=== PATIENT | male | born 1975 | race Caucasian/White ===

== ENCOUNTER → 2016-05-26 | Outpatient (CLI) | payer SELFPAY | LOC: RAD 06:58 | PROVIDERS: ATTEND Chiropractor | DX: M54.2 Cervicalgia (principal) | CPT/HCPCS: 72050 ==

== ENCOUNTER 2017-12-06 17:03 | Emergency (ER) | payer SELFPAY ==
--- NOTE | 2017-12-06 17:55 | RADIOLOGY REPORT (SQ) ---
EXAM DESCRIPTION: FOOT RIGHT COMPLETE COMPLETED DATE/TIME: 12/06/2017 5:43 pm REASON FOR STUDY: Pain s/p twisting foot COMPARISON: None. NUMBER OF VIEWS: Three views. TECHNIQUE: AP, lateral and oblique radiographic images acquired of the right foot. LIMITATIONS: None. FINDINGS: MINERALIZATION: Normal. BONES: No acute fracture or dislocation. No worrisome bone lesions. JOINTS: No effusions. SOFT TISSUES: No soft tissue swelling. No foreign body. OTHER: Minimal plantar spurring is identified. IMPRESSION: NO RADIOGRAPHIC EVIDENCE OF ACUTE INJURY. TECHNICAL DOCUMENTATION: JOB ID: [id number] [employer]- All Rights Reserved Reading location - IP/workstation name: [email or web address]
--- NOTE | 2017-12-06 18:20 | ER Document Report ---
HPI - HPI Patient complains to provider of: twisted right foot Onset: Other - today Onset/Duration: Sudden Quality of pain: Throbbing Pain Level: 4 Context: 42 yo male with right proximal dorsal fot pain after twisting it today. No ankle pain. Associated Symptoms: None Exacerbated by: Walking Relieved by: Denies Similar symptoms previously: No Recently seen / treated by doctor: No - ROS ROS below otherwise negative: Yes Systems Reviewed and Negative: Yes All other systems reviewed and negative - REPRODUCTIVE Reproductive: DENIES: : Past Medical History - General Information source: Patient - Social History Smoking Status: Unknown if Ever Smoked Frequency of alcohol use: None Drug Abuse: None Lives with: Spouse/Significant other Family History: None - Medical History Medical History: Negative Surgical Hx: Negative - Immunizations Hx Diphtheria, Pertussis, Tetanus Vaccination: Yes Vertical Provider Document - CONSTITUTIONAL Agree With Documented VS: Yes Exam Limitations: No Limitations General Appearance: No Apparent Distress - INFECTION CONTROL TRAVEL OUTSIDE OF THE [place] IN LAST 30 DAYS: No - MUSCULOSKELETAL/EXTREMETIES Musculoskeletal/Extremeties: Edema - tender proximal dorsal right foot, 2+ dp, non tender malleoli - NEURO Level of Consciousness: Alert Motor/Sensory: No Motor Deficit, No Sensory Deficit - DERM Integumentary: No Rash Course - Re-evaluation Re-evalutation: 12/06/17 18:22 X-rays negative per rad he is tender only on the foot not the malleoli 12/06/17 19:50 Both x-rays are negative, will splint and send to ortho - Vital Signs Vital signs: Temp Pulse Resp BP Pulse Ox 98.1 F 82 16 127/93 H 98 12/06/17 17:46 12/06/17 17:46 12/06/17 17:46 12/06/17 17:46 12/06/17 17:46 Procedures - Immobilization Right Foot Time completed: 20:19 Pre-Proc Neuro Vasc Exam: Normal Immobilizer type: Crutches, Posterior ankle Performed by: PCT Post-Proc Neuro Vasc Exam: Normal Alignment checked and good: Yes Discharge - Discharge Clinical Impression: Right foot sprain Condition: Good Disposition: HOME, SELF-CARE Instructions: Acetaminophen, Use of Crutches ([facility]), Ibuprofen (General) ([facility]), Sprain ([facility]) Additional Instructions: Splint for comfort this week Crutches Referral to orthopedics both the foot and ankle x-ray are negative Ibuprofen 3 times a day for inflammation Tylenol up to 4000 mg per day for pain Prescriptions: Ibuprofen [Motrin 800 mg Tablet] 800 mg PO Q8HP PRN #30 tablet PRN Reason: Forms: Return to Work Referrals: VANESA LÓPEZ MD [ACTIVE STAFF] - Follow up as needed
[2017-12-06] MEDS ORDERED: IBUPROFEN 600 MG TABLET PO ONE (18:23)
[2017-12-06] MEDS ORDERED: ACETAMINOPHEN 325 MG TABLET PO ONE (18:23)
[2017-12-06] MEDS ORDERED: OXYCODONE HCL IR 5 MG TABLET PO ONE (19:19)
--- NOTE | 2017-12-06 19:43 | RADIOLOGY REPORT (SQ) ---
EXAM DESCRIPTION: ANKLE RIGHT COMPLETE COMPLETED DATE/TIME: 12/06/2017 7:27 pm REASON FOR STUDY: pain anterior ankle, only foot xray done COMPARISON: None. NUMBER OF VIEWS: Three views. TECHNIQUE: AP, lateral, and oblique radiographic images acquired of the right ankle. LIMITATIONS: None. FINDINGS: MINERALIZATION: Normal. BONES: No acute fracture or dislocation. No worrisome bone lesions. JOINTS: No effusions. SOFT TISSUES: No soft tissue swelling. No foreign body. OTHER: No other significant finding. IMPRESSION: NEGATIVE STUDY OF THE RIGHT ANKLE. NO RADIOGRAPHIC EVIDENCE OF ACUTE INJURY. TECHNICAL DOCUMENTATION: JOB ID: [id number] [employer]- All Rights Reserved Reading location - IP/workstation name: [email or web address]
[2017-12-06 20:26] VITALS: BP 134/92
== END 2017-12-06 20:26 | disposition home or self-care (01) ==
LOC: ER 17:03
PROC: 2W3QX1Z Immobilization of Right Lower Leg using Splint (ICD-10-PCS; principal; 2017-12-06)
DX: S93.601A Unspecified sprain of right foot, initial encounter (principal); X50.0XXA Overexertion from strenuous movement or load, initial encounter
CPT/HCPCS: 99283

== ENCOUNTER 2019-01-10 13:50 | Emergency (ER) | payer SELFPAY ==
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
[2019-01-10] MEDS ORDERED: OXYCODONE-ACETAMINOPHEN 5-325 MG TABLET PO ONE ×2 (16:46→16:47)
--- NOTE | 2019-01-10 18:32 | RADIOLOGY REPORT (SQ) ---
EXAM DESCRIPTION: MRI LUMBAR SPINE WITHOUT COMPLETED DATE/TIME: 01/10/2019 6:17 pm REASON FOR STUDY: low back pain, injury, COMPARISON: None. TECHNIQUE: Sagittal and Axial imaging includes T1, T2, STIR and gradient echo sequences. Coronal T2/ HASTE imaging. LIMITATIONS: There is motion artifact. FINDINGS: VISUALIZED UPPER ABDOMEN: Limited evaluation. No acute or suspicious findings suggested. SEGMENTATION: No transitional anatomy. The lowest well-developed disc space is labeled L5-S1. ALIGNMENT: Anatomic. VERTEBRAE: Intact. BONE MARROW: Normal. No marrow replacement or reactive changes. DISC SIGNAL: There is mild disc narrowing at several levels with decreased signal intensity at L3-4 a nd L4-5. POSTERIOR ELEMENTS: Generally intact. No pars defect evident. HARDWARE: None in the spine. CORD AND CONUS: Normal in size and signal intensity. Conus at the L1 level. SOFT TISSUES: No aortic aneurysm seen. No bulky retroperitoneal adenopathy or mass. No paraspinal mas s or fluid. L1-L2: Mild concentric disc bulge at L1-2 with no significant central canal or foraminal stenosis. L2-L3: No significant spinal stenosis or exit foraminal stenosis. L3-L4: No significant spinal stenosis or exit foraminal stenosis. L4-L5: No significant spinal stenosis or exit foraminal stenosis. L5-S1: No significant spinal stenosis or exit foraminal stenosis. LOWER THORACIC: Incompletely imaged. No stenosis seen. SACRUM: Visualized upper sacrum intact. OTHER: No other significant findings. IMPRESSION: Mild concentric disc bulging at L1-2 with no significant central canal or foraminal sten osis. No other significant findings. Study is limited by motion artifact. TECHNICAL DOCUMENTATION: JOB ID: [id number] [employer]- All Rights Reserved Reading location - IP/workstation name: [email or web address]
[2019-01-10 18:54] LABS: APPEARANCE,URINE CLEAR; BILIRUBIN,URINE NEGATIVE (NEGATIVE); COLOR,URINE YELLOW; GLUCOSE, URINE NEGATIVE (NEGATIVE); KETONES,URINE NEGATIVE (NEGATIVE); LEUKOCYTE ESTERASE,URINE NEGATIVE (NEGATIVE); NITRITE,URINE NEGATIVE (NEGATIVE); PROTEIN,URINE NEGATIVE (NEGATIVE); URINE SPECIFIC GRAVITY 1.016; UROBILINOGEN,URINE NEGATIVE mg/dL (<2.0)
[2019-01-10 19:21] VITALS: BP 127/91
== END 2019-01-10 19:24 | disposition home or self-care (01) ==
LOC: ER 13:50
DX: M51.86 Other intervertebral disc disorders, lumbar region (principal); M54.5 Low back pain; X50.0XXA Overexertion from strenuous movement or load, initial encounter; Y99.8 Other external cause status
CPT/HCPCS: 72148; 81001; 99284

== ENCOUNTER → 2019-02-21 | Outpatient (CLI) | payer SELFPAY ==
--- NOTE | 2019-02-21 14:34 | RADIOLOGY REPORT (SQ) ---
EXAM DESCRIPTION: CERV SP 4 OR 5 VIEWS COMPLETED DATE/TIME: 02/21/2019 1:54 pm REASON FOR STUDY: (M54.2)CERVICALGIA M54.2 CERVICALGIA COMPARISON: None. NUMBER OF VIEWS: Five views. TECHNIQUE: AP, lateral, obliques and odontoid radiographic images acquired of the cervical spine. LIMITATIONS: None. FINDINGS: MINERALIZATION: Normal. ALIGNMENT: Anatomic. VERTEBRAE: Vertebral bodies of normal height. DISCS: There is mild disc narrowing at C5-6 and greater 8 disc narrowing at C6-7. Marginal osteophyt es are seen at C6-7. FORAMINA: No osteophytes or foraminal narrowing. LATERAL AND POSTERIOR ELEMENTS: Facets, lateral masses and spinous processes without significant find ings. HARDWARE: None in the spine. SOFT TISSUES: No masses or calcifications. Lung apices clear. OTHER: No other significant finding. IMPRESSION: Degenerative disc disease and spondylosis. TECHNICAL DOCUMENTATION: JOB ID: [id number] [employer]- All Rights Reserved Reading location - IP/workstation name: [email or web address]
== END ==
LOC: RAD 13:32
PROVIDERS: ATTEND Nurse Practitioner Family
DX: M50.323 Other cervical disc degeneration at C6-C7 level (principal); M47.892 Other spondylosis, cervical region
CPT/HCPCS: 72050

== ENCOUNTER 2019-02-23 20:22 | Emergency (ER) | payer SELFPAY | END 2019-02-23 22:14 | disposition left against medical advice (07) | LOC: ER 20:22 | DX: Z53.21 Procedure and treatment not carried out due to patient leaving prior to being seen by health care provider (principal) ==